=== PATIENT | male | born 1945 | race Caucasian/White ===

== ENCOUNTER → 2019-12-31 08:05 | Outpatient (CLI) | payer OTHER, SELFPAY ==
--- NOTE | 2019-12-31 08:10 | DI.MRI.S_ITS ---
PROCEDURE: MR KNEE LT WO CON INDICATIONS: Pain in left knee TECHNIQUE: Noncontrast sagittal PD fast spin echo and T2 fast spin echo with fat saturation, sagittal 3-D FLASH with fat saturation; coronal T1 spin echo and PD fast spin echo with fat saturation, and axial PD fast spin echo with fat saturation through the knee. COMPARISON: None. FINDINGS: Image quality: Excellent. Menisci: Complex oblique tear involving posterior horn of medial meniscus is seen extending to the inferior articulating surface. Lateral meniscus is intact. The The meniscal root ligaments appear intact. Cruciate ligaments: Thickened anterior cruciate ligament with intrasubstance T2 hyperintense signal in its proximal portion suggestive of sprain/low-grade partial-thickness tear. Posterior cruciate ligament is intact.. Medial structures: There is low to moderate grade MCL sprain.. The posterior oblique ligament, semimembranosus tendon insertions, oblique popliteal ligament, and meniscocapsular junction appear intact. Visualized portions of the pes anserinus tendons appear normal. No abnormal bursal fluid. Lateral structures: The lateral collateral ligament, long and short heads of the biceps femoris tendon appear intact. The popliteus tendon appears normal; the popliteofibular ligament appears intact. The posterosuperior and anteroinferior popliteomeniscal fascicles appear intact. The arcuate and fabellofibular ligaments appear intact, on either side of the lateral inferior geniculate artery. Iliotibial band appears normal. Anterior structures: The quadriceps and patellar tendons appear intact. Patellar alignment is normal. No femoral trochlear dysplasia or ventral trochlear prominence. No edema in the infrapatellar fat pad. Bones and cartilage: There is marrow edema involving the anterior weightbearing portion of lateral femoral condyle with overlying moderate to high-grade chondromalacia suggestive of osteochondral lesions measures up to 7 mm in size. Low-grade chondromalacia involving medial femoral tibial compartment, medial and lateral facet of patella cartilage is also seen. Tiny 3 mm osteochondral lesion is seen in posterior patella near apex. Joint space: Small amount of joint effusion is noted. No gross intra-articular loose body. Popliteal cyst is noted and measures 4.1 x 2.2 x 6.5 cm in size.. Normal appearing synovial plicae are incidentally noted. IMPRESSION: 1. Mild tricompartmental osteoarthritis and chondromalacia most prominent involving the lateral femoral tibial compartment with suggestion of subcentimeter osteochondral lesion seen in anterior weightbearing portion of lateral femoral condyle. No fracture or dislocation. Small amount of joint fluid. Popliteal cyst as above. 2. Complex oblique tear involving posterior horn of medial meniscus extending to inferior articulating surface. No focal lateral meniscal tear. 3. Proximal to mid ACL sprain/low-grade intrasubstance partial-thickness tear. No full-thickness ACL rupture. PCL is intact. 4. Low to moderate grade MCL sprain. Dictated by: Geoffrey Soares M.D. on 12/31/2019 at 10:17 Approved by: Geoffrey Soares M.D. on 12/31/2019 at 10:22
== END ==
PROVIDERS: Family Provider Registered Nurse; PCP Registered Nurse; Referring Provider Nurse Practitioner Acute Care; Visit Provider Nurse Practitioner Acute Care
DX: M25.562 Pain in left knee (principal); S83.232A Complex tear of medial meniscus, current injury, left knee, initial encounter; M17.12 Unilateral primary osteoarthritis, left knee; M94.262 Chondromalacia, left knee; S83.512A Sprain of anterior cruciate ligament of left knee, initial encounter; S83.412A Sprain of medial collateral ligament of left knee, initial encounter
CPT/HCPCS: 73721

== ENCOUNTER 2022-11-22 15:45 | Emergency (ER) | payer OTHER, SELFPAY ==
[2022-11-22 16:04] VITALS: BP 132/73; PULSE 63; RESP 16; TEMP 36.3; O2SAT 95; BMI 28.7
--- NOTE | 2022-11-22 16:09 | DI.RAD.S_ITS ---
PROCEDURE: XR TOE LT MIN 2V INDICATIONS: L great toe stuck under boat parking break TECHNIQUE: 3 views of the 1st toe(s) acquired. COMPARISON: None. FINDINGS: Bones: No fractures or dislocations. No suspicious bony lesions. Soft tissues: No suspicious soft tissue densities. IMPRESSION: Soft tissue swelling over the 1st digit but no fracture or foreign body is seen. Dictated by: Thanh Overton M.D. on 11/22/2022 at 16:42 Approved by: Thanh Overton M.D. on 11/22/2022 at 16:43
[2022-11-22] MEDS: ACETAMINOPHEN 325 MG TABLET 975 MG PO (20:04)
--- NOTE | 2022-11-22 20:09 | ED_ITS ---
HPI - Extremity Injury (Lower) General Chief Complaint: Extremity Injury, Lower Stated Complaint: Toe inj Time Seen by Provider: 11/22/22 16:39 History of Present Illness HPI Narrative: Patient is a 77-year-old male who presents with left great toe injury. He reports that 3 days ago he stomped on a brake pedal he had to do it twice with a bare foot and his big toe bent upwards. Since then he is had increasing pain and swelling. Hurts to walk. He has been elevating and icing. Came in today for an x-ray which is negative. He takes no medications. Related Data Home Medications Medication Instructions Recorded Confirmed ranitidine HCl 150 mg tablet 150 mg PO QDAY ##0 08/12/16 (Zantac) simvastatin 10 mg tablet 10 mg PO HS ##0 08/12/16 trazodone 150 mg tablet 150 mg PO HS ##0 08/12/16 [ALLERGY MEDICATION] ##0 06/02/17 cholecalciferol (vitamin D3) 50 PO QDAY ##0 06/02/17 mcg (2,000 unit) capsule (Vitamin D3) cyanocobalamin (vitamin B-12) 50 100 mcg PO QDAY ##0 06/02/17 mcg tablet (Vitamin B-12) propranolol 10 mg tablet 10 mg PO BIDP PRN ##0 06/02/17 vitamin E 100 unit capsule PO QDAY ##0 06/02/17 Previous Rx's Medication Instructions Recorded meclizine 25 mg tablet 25 mg PO TIDP PRN #20 tabs 06/02/17 ondansetron 4 mg disintegrating 4 mg sublingual Q6HP PRN ##10 06/02/17 tablet (Zofran ODT) hydrocodone 5 mg-acetaminophen 325 1 tab PO Q6H PRN pain #10 tabs 11/22/22 mg tablet Allergies Allergy/AdvReac Type Severity Reaction Status Date / Time No Known Drug Allergies Allergy Verified 11/22/22 19:46 Review of Systems Review of Systems ROS Unobtainable: All systems reviewed & are unremarkable except as noted in HPI and below Exam Initial Vital Signs Initial Vital Signs: Vital Signs Temperature 97.4 F L 11/22/22 16:04 Pulse Rate 63 11/22/22 16:04 Respiratory Rate 16 11/22/22 16:04 Blood Pressure 132/73 11/22/22 16:04 Pulse Oximetry 95 11/22/22 16:04 Oxygen Delivery Method Room Air 11/22/22 16:04 GENERAL: Alert pleasant 77-year-old male CARDIOVASCULAR: peripheral pulses in tact, cap refill <2 sec RESPIRATORY: No respiratory distress, speaks in full sentences without difficulty EXTREMITIES: Normal range of motion, no clubbing or edema. Neurovascularly intact Left great toe erythematous contusion noted cap refill less than 2 seconds strong distal pedal pulse. Decreased range of motion due to pain NEUROLOGICAL: Cranial nerves II through XII grossly intact. Normal gait and speech. SKIN: Warm, dry, no petechiae, no rashes or lesions. Course Orders Ordered: Discontinued Medications Acetaminophen (Acetaminophen 325 Mg Tablet) 975 mg PO NOW ONE Stop: 11/22/22 19:47 Last Admin: 11/22/22 20:04 Dose: 975 mg Documented By: ROSEANN Hydrocodone Bitart/Acetaminophen (Hydrocodone/Acet 5/325 Prepack) 1 bottle MISC SEEINSTR ONE Stop: 11/22/22 20:23 Last Admin: 11/22/22 20:29 Dose: 1 bottle Documented By: ROSEANN Vital Signs Vital signs: Vital Signs - 8 hr 11/22/22 16:04 Temperature 97.4 F L Pulse Rate 63 Respiratory Rate 16 Blood Pressure 132/73 Pulse Oximetry 95 Oxygen Delivery Method Room Air [facility] - Extremity Injury (Lower) Imaging Data Extremity x-ray #1: Radiologist's Impression: PROCEDURE:? XR TOE LT MIN 2V ? INDICATIONS:? L great toe stuck under boat parking break ? TECHNIQUE:? 3 views of the 1st toe(s) acquired.? ? COMPARISON:? None. ? FINDINGS:? ? Bones:? No fractures or dislocations.? No suspicious bony lesions.? ? Soft tissues:? No suspicious soft tissue densities.? ? IMPRESSION:? Soft tissue swelling over the 1st digit but no fracture or foreign body is seen. ? ? Dictated by: Thanh Overton M.D. on 11/22/2022 at 16:42 ? ? [facility] Narrative Medical decision making narrative: Patient is 77-year-old male had an obvious mechanism and mechanical injury to his toe. It is erythematous I do not suspect infection at this time. X-rays negative for fracture. When suspect gout with history of an actual injury. He is given an orthopedic shoe pain medication instructed to follow-up. Discharge Plan Departure Patient Disposition: Home Clinical Impression: Sprain of great toe of left foot Instructions: DI for Toe Sprain Activity Restrictions/Additional Instructions: *You have been diagnosed with left great toe sprain *What to do: At this time wear brace as needed. Elevate and ice 20-30 minutes at a time. Please monitor redness and for fever. *Continue to take medications as directed Motrin 600 mg every 6 hours if needed for [id number] pain [place] 1 tablet every 6 hours if needed for severe pain--> SENT TO [facility] *Follow up with your primary care provider in 2-3 days or call [phone] *Return to ER if you should have increasing pain swelling redness fever [or] any new, worsening or concerning symptoms CONTROLLED SUBSTANCE DISCHARGE (Narcotoic/benzodiazepine/Flexeril/Phenergan) 1. You have been prescribed narcotic medications, it does have acetaminophen/Tylenol/paracetamol in it, DO NOT TAKE MORE THAN 4,00mg in 24 hours of Tylenol. TRAMADOL DOES NOT CONTAIN TYLENOL 2. Please understand that we cannot provide further refills of narcotics, benzodiazepines or controlled substances through the ED and her pain management will need to be through your provider. 3. While on these medications you cannot drive or operate heavy machinery. 4. You cannot sign legal documents or perform any duties such as this. 5. As long as you're taking opiate pain medications he should also be taking a stool softener such as Colace, Dulcolax, MiraLAX or prune juice, to help avoid constipation. Prescriptions: New hydrocodone-acetaminophen 5-325 mg tablet 1 tab PO Q6H PRN (Reason: pain) Qty: 10 0RF No Action trazodone 150 MG tablet 150 mg PO HS Qty: 0 simvastatin 10 MG tablet 10 mg PO HS Qty: 0 ranitidine HCl [Zantac] 150 MG tablet 150 mg PO QDAY Qty: 0 propranolol 10 MG tablet 10 mg PO BIDP PRNQty: 0 [ALLERGY MEDICATION] Qty: 0 vitamin E 100 unit capsule PO QDAY Qty: 0 cholecalciferol (vitamin D3) [Vitamin D3] 2,000 unit capsule PO QDAY Qty: 0 cyanocobalamin (vitamin B-12) [Vitamin B-12] 50 MCG tablet 100 mcg PO QDAY Qty: 0 meclizine 25 MG tablet 25 mg PO TIDP PRNQty: 20 0RF ondansetron [Zofran ODT] 4 MG tablet,disintegrating 4 mg Sublingual Q6HP PRNQty: 10 0RF Referrals: Chiara Holguin ARNP [Primary Care Provider] - Stand Alone Forms: Patient Portal/API
[2022-11-22] MEDS: HYDROCODONE/ACET 5/325 PREPACK 1 BOTTLE MISC (20:29)
[2022-11-22 20:38] VITALS: BP 128/78; PULSE 62; RESP 18; O2SAT 99
== END 2022-11-22 20:41 | disposition home or self-care (01) ==
PROVIDERS: Emergency Provider Emergency Medicine; Family Provider Registered Nurse; PCP Registered Nurse
DX: S93.502A Unspecified sprain of left great toe, initial encounter (principal); W22.8XXA Striking against or struck by other objects, initial encounter
CPT/HCPCS: 73660; 99283